=== PATIENT | female | born 1935 | race Two or more races ===

== ENCOUNTER 2019-10-21 12:45 | Emergency (ER) | payer MEDICARE ==
--- NOTE | 2019-10-21 13:45 | XRAY Report ---
Reason: productive cough. Procedure Date: 10/21/2019 Accession Number: [id number] / [id number] Procedure: XR - Chest 2 View X-Ray CPT Code: 66874 Final Report FULL RESULT: EXAM: CHEST RADIOGRAPHY EXAM DATE: 10/21/2019 01:05 PM. CLINICAL HISTORY: Productive cough for 1 week. COMPARISON: None. TECHNIQUE: 2 views. FINDINGS: Lungs/Pleura: No focal opacities evident. No pleural effusion. No pneumothorax. Normal volumes. Posterior left diaphragmatic eventration noted. Mediastinum: Heart and mediastinal contours are unremarkable. Other: None. IMPRESSION: No acute disease evident. RADIA
--- NOTE | 2019-10-21 14:04 | ED Physician Documentation ---
PD HPI URI - Stated complaint Stated Complaint: COUGH - Chief complaint Chief Complaint: Resp - History obtained from History obtained from: Patient, Family - History of Present Illness Timing - onset: How many weeks ago (2) Timing details: Gradual onset, Still present Associated symptoms: Ear pain, Nasal congestion, Rhinorrhea, Sore throat, Productive cough, Dyspnea Contributing factors: Sick contact, Travel Improves by: Rest, MDI/nebulizer Worsened by: Activity, Breathing Similar symptoms before: Diagnosis (rad) Recently seen: Not recently seen - Additional information Additional information: Previously well 84-year-old female who is visiting from [place] has developed a cough over the past 2 weeks. She was doing well with this cough and using her nebulizer machine as needed until yesterday. She began to have more and more phlegm production and she has become more short of breath. She has had to use her nebulizer machine 3 times during the night. She does have some diabetes states her sugars been running about 120. She has some hypertension as well. Review of Systems Constitutional: denies: Fever Eyes: denies: Decreased vision Ears: reports: Ear pain Nose: reports: Rhinorrhea / runny nose, Congestion Throat: reports: Sore throat Cardiac: denies: Chest pain / pressure, Palpitations Respiratory: reports: Dyspnea, Cough, Wheezing GI: denies: Abdominal Pain, Nausea, Vomiting : denies: Dysuria, Frequency PD PAST MEDICAL HISTORY - Past Medical History Past Medical History: Yes Cardiovascular: Hypertension Respiratory: Asthma Endocrine/Autoimmune: Type 2 diabetes - Past Surgical History Past Surgical History: No - Present Medications Home Medications: Ambulatory Orders Medication Instructions Recorded Confirmed Amox/Clav 875/125 [Augmentin] 1 each PO Q12H #20 tablet 10/21/19 Benzonatate [Tessalon Perle] 100 - 200 mg PO TID PRN #30 capsule 10/21/19 - Allergies Allergies/Adverse Reactions: Allergies Allergy/AdvReac Type Severity Reaction Status Date / Time codeine Allergy Hives Verified 10/21/19 14:12 - Social History Does the pt smoke?: No Smoking Status: Never smoker Does the pt drink ETOH?: No Does the pt have substance abuse?: No - Immunizations Immunizations are current?: Yes - POLST Patient has POLST: No PD ED PE NORMAL - Vitals Vital signs reviewed: Yes (hypertensive mild ) - General General: Alert and oriented X 3, No acute distress, Well developed/nourished - HEENT HEENT: Atraumatic, PERRL, EOMI, Pharynx benign, Dentition benign, Other (inflamation to the right TM is mild and the left is clear. ) - Neck Neck: Supple, no meningeal sign, No bony TTP - Cardiac Cardiac: RRR, No murmur - Respiratory Respiratory: No respiratory distress, Other (diminished breath sounds and mild rhonchi in the right base. ) - Abdomen Abdomen: Soft, Non tender - Back Back: No CVA TTP, No spinal TTP - Derm Derm: Normal color, Warm and dry, No rash - Extremities Extremities: No deformity, No edema, No calf tenderness / cord - Neuro Neuro: chain dyer 2-12 intact, No motor deficit, No sensory deficit, Normal speech Eye Opening: Spontaneous Motor: Obeys Commands Verbal: Oriented GCS Score: 15 - Psych Psych: Normal mood, Normal affect Results - Vitals Vitals: Vital Signs - 24 hr 10/21/19 10/21/19 10/21/19 12:52 12:54 14:54 Temperature 36.8 C Heart Rate 77 77 77 Respiratory 18 18 16 Rate Blood Pressure 159/78 H 159/78 H 150/76 H O2 Saturation 93 93 94 Oxygen O2 Source Room air - Rads (name of study) chest Radiology: Prelim report reviewed (Impression: No acute disease evident.), EMP read indepedently (On my read there is a subtle right lower lobe infiltrate.), See rad report PD MEDICAL DECISION MAKING - ED course Complexity details: considered differential, d/w patient ED course: 84 y/o female with a cough and congestion is producing a lot of phlem and she has OM on exam and pneumonia on exam with corresponding findings on CXR and she is treated with decadron and rocephin. Departure - Departure Disposition: 01 Home, Self Care Clinical Impression: Otitis media Qualifiers: Otitis media type: suppurative Chronicity: acute Laterality: right Recurrence: non-recurrent Spontaneous tympanic membrane rupture: without spontaneous rupture Qualified Code(s): H66.001 - Acute suppurative otitis media without spontaneous rupture of ear drum, right ear Pneumonia Qualifiers: Pneumonia type: due to unspecified organism Laterality: right Lung location: lower lobe of lung Qualified Code(s): J18.9 - Pneumonia, unspecified organism Condition: Stable Instructions: ED Otitis Media Acute Adult, ED Pneumonia Adult Follow-Up: Your, doctor [Other] Prescriptions: Amox/Clav 875/125 [Augmentin] 1 each PO Q12H #20 tablet Benzonatate [Tessalon Perle] 100 - 200 mg PO TID PRN #30 capsule PRN Reason: Cough Discharge Date/Time: 10/21/19 15:06
[2019-10-21] MEDS ORDERED: DEXAMETHASONE 10 MG/ML VIAL PO STA (14:06)
[2019-10-21] MEDS ORDERED: cefTRIAXone 1 GM VIAL IM STA (14:06)
[2019-10-21] MEDS ORDERED: LIDOCAINE 1% 2 ML VIAL MC ONE (14:06)
[2019-10-21] MEDS ORDERED: CHERRY SYRUP 10 ML UDC PO ONE (14:06)
[2019-10-21 15:07] VITALS: BP 150/76
== END 2019-10-21 15:06 | disposition home or self-care (01) ==
LOC: ED 12:45
DX: H66.001 Acute suppurative otitis media without spontaneous rupture of ear drum, right ear (principal); J18.9 Pneumonia, unspecified organism; I10 Essential (primary) hypertension; E11.9 Type 2 diabetes mellitus without complications
CPT/HCPCS: 71046; 96372; 99283; 99284; A9270